=== PATIENT | female | born 1970 | race Caucasian/White ===

== ENCOUNTER 2018-11-30 04:59 | Inpatient (IN) ==
[2018-11-24 14:05] LABS: Basophils # 0.1 10*3/uL (0.0-0.2); Basophils % 0.7 % (0.0-0.8); Eosinophils # 0.5 10*3/uL (0.0-0.87); Eosinophils % 5.8 % (0.00-10.9); Hematocrit 36.7 VOL% (35.7-47.0); Hemoglobin 11.6 GM/DL (12.0-16.0); Immature Granulocytes % 0.4 %; Immature Granulocytes Absolute 0.03 #; Lymphocytes # 1.9 10*3/uL (1.4-4.0); Lymphocytes % 22.4 % (21.3-54.2); Mean Corpuscular HGB Conc 31.6 GM/DL (32-36); Mean Corpuscular Volume 87.6 FL (87-102); Mean Platelet Volume 11.4 FL (9.6-12.0); Monocytes % 7.2 % (1.7-12.7); Neutrophils % 63.5 % (38.7-73.9); Platelet Count 239 T/CUMM (130-400); Red Blood Count 4.19 MC/CUMM (3.8-5.5); Red Cell Distribution Width 13.8 % (9.3-17.3); White Blood Count 8.5 T/CUMM (4-12)
[2018-11-24 14:18] LABS: Calcium 8.8 MG/DL (8.5-10.1); Osmolality,Calculated 276.4 MOS/KG (273-304)
[2018-11-30] MEDS ORDERED: CLINDAMYCIN INJ 50 ML IV ONE (06:05)
[2018-11-30] MEDS ORDERED: FAMOTIDINE 20 MG TABLET PO ONE (06:20)
[2018-11-30] MEDS ORDERED: BUPIVACAINE MPF 0.25% 30 ML VIAL ONE ×3 (06:22→06:27)
[2018-11-30] MEDS ORDERED: DEXAMETHASONE 4 MG/1 ML VIAL ONE ×2 (06:22→11:01)
[2018-11-30] MEDS ORDERED: EPINEPHrine 1 MG/ML VIAL ONE (06:22)
[2018-11-30] MEDS ORDERED: LIDOCAINE 1%/EPI INJ 20 ML VIAL ONE (06:24)
[2018-11-30] MEDS ORDERED: TISSUE ADHESIVE 1 EACH APPLICATOR TOP ONE (06:24)
[2018-11-30] MEDS ORDERED: INDOCYANINE GREEN 25 MG VIAL IV ONE (06:24)
[2018-11-30] MEDS ORDERED: LACTATED RINGERS 1,000 ML IV SCH (06:30)
[2018-11-30] MEDS ORDERED: MICROFIBRILLAR COLLAGEN POWDER 1 GM CAN TOP ONE (09:13)
[2018-11-30] MEDS ORDERED: SEVOFLURANE 1 UNIT/15 MINUTE INH ONE (11:00)
[2018-11-30] MEDS ORDERED: LIDOCAINE 2% 5 ML VIAL ONE (11:00)
[2018-11-30] MEDS ORDERED: CLINDAMYCIN INJ 900 MG in PREMIX 1 EACH IV ONE (11:00)
[2018-11-30] MEDS ORDERED: propofoL 200 MG/20 ML VIAL IV ONE (11:00)
[2018-11-30] MEDS ORDERED: NEOSTIGMINE 10 MG/10 ML VIAL ONE (11:01)
[2018-11-30] MEDS ORDERED: ROCURONIUM 100 MG/10 ML VIAL IV ONE (11:01)
[2018-11-30] MEDS ORDERED: MIDAZOLAM 2 MG/2 ML VIAL ONE (11:01)
[2018-11-30] MEDS ORDERED: KETOROLAC 30 MG/1 ML VIAL ONE (11:01)
[2018-11-30] MEDS ORDERED: ONDANSETRON 4 MG/2 ML VIAL ONE (11:01)
[2018-11-30] MEDS ORDERED: GLYCOPYRROLATE 0.4 MG/2 ML VIAL ONE (11:01)
[2018-11-30] MEDS ORDERED: fentaNYL 100 MCG/2 ML VIAL ONE (11:01)
[2018-11-30] MEDS ORDERED: LACTATED RINGERS 3,000 ML IV ONE (11:01)
[2018-11-30] MEDS ORDERED: ALBUTEROL 2.5 MG/3 ML NEB RESP TX PRN (11:03)
[2018-11-30] MEDS ORDERED: ONDANSETRON 4 MG/2 ML VIAL IV PRN (11:09)
[2018-11-30] MEDS: HYDROmorphone 2 MG/1 ML VIAL IV PRN ×6 (11:12→23:49)
[2018-11-30 12:36] LABS: Basophils # 0.1 10*3/uL (0.0-0.2); Basophils % 0.3 % (0.0-0.8); Eosinophils # 0.1 10*3/uL (0.0-0.87); Eosinophils % 0.3 % (0.00-10.9); Hematocrit 29.3 VOL% (35.7-47.0); Hemoglobin 9.2 GM/DL (12.0-16.0); Immature Granulocytes % 0.7 %; Immature Granulocytes Absolute 0.12 #; Lymphocytes # 0.9 10*3/uL (1.4-4.0); Lymphocytes % 5.1 % (21.3-54.2); Mean Corpuscular HGB Conc 31.4 GM/DL (32-36); Mean Corpuscular Volume 86.9 FL (87-102); Monocytes % 3.5 % (1.7-12.7); Neutrophils % 90.1 % (38.7-73.9); Platelet Count 218 T/CUMM (130-400); Red Blood Count 3.37 MC/CUMM (3.8-5.5); Red Cell Distribution Width 13.8 % (9.3-17.3)
[2018-11-30] MEDS: DEXTROSE 5% LACTATED RINGERS 1,000 ML IV SCH ×2 (13:03→21:08)
[2018-11-30] MEDS: CLINDAMYCIN INJ 900 MG in PREMIX 1 EACH IV SCH (17:14)
[2018-11-30] MEDS: ONDANSETRON 4 MG/2 ML VIAL IV PRN ×2 (17:33→23:49)
[2018-11-30 19:15] LABS: Hematocrit 30.3 VOL% (35.7-47.0); Hemoglobin 9.4 GM/DL (12.0-16.0)
[2018-12-01] MEDS: CLINDAMYCIN INJ 900 MG in PREMIX 1 EACH IV SCH (01:24)
[2018-12-01] MEDS: DEXTROSE 5% LACTATED RINGERS 1,000 ML IV SCH ×3 (04:00→21:01)
[2018-12-01] MEDS: ONDANSETRON 4 MG/2 ML VIAL IV PRN ×2 (05:16→21:00)
[2018-12-01] MEDS: HYDROmorphone 2 MG/1 ML VIAL IV PRN ×2 (05:17→19:08)
[2018-12-01 05:59] LABS: Basophils % 0.1 % (0.0-0.8); Hematocrit 27.7 VOL% (35.7-47.0); Hemoglobin 8.5 GM/DL (12.0-16.0); Immature Granulocytes % 0.4 %; Immature Granulocytes Absolute 0.05 #; Lymphocytes % 8.2 % (21.3-54.2); Mean Corpuscular HGB Conc 30.7 GM/DL (32-36); Mean Corpuscular Volume 89.4 FL (87-102); Mean Platelet Volume 11.9 FL (9.6-12.0); Monocytes % 6.9 % (1.7-12.7); Neutrophils % 84.4 % (38.7-73.9); Platelet Count 209 T/CUMM (130-400); Red Cell Distribution Width 14.3 % (9.3-17.3); White Blood Count 12.6 T/CUMM (4-12)
[2018-12-01 06:26] LABS: Osmolality,Calculated 280.3 MOS/KG (273-304)
[2018-12-01] MEDS: PANTOPRAZOLE 40 MG TABLET PO SCH (09:03)
[2018-12-01] MEDS: GABAPENTIN 100 MG CAPSULE PO SCH (21:00)
[2018-12-02] MEDS ORDERED: diphenhydrAMINE 50 MG/1 ML VIAL IV ONE (00:33)
[2018-12-02 05:07] LABS: Basophils % 0.4 % (0.0-0.8); Eosinophils # 0.2 10*3/uL (0.0-0.87); Hematocrit 24.4 VOL% (35.7-47.0); Hemoglobin 7.3 GM/DL (12.0-16.0); Immature Granulocytes % 0.5 %; Immature Granulocytes Absolute 0.04 #; Lymphocytes % 22.9 % (21.3-54.2); Mean Corpuscular HGB Conc 29.9 GM/DL (32-36); Mean Platelet Volume 12.2 FL (9.6-12.0); Monocytes % 8.1 % (1.7-12.7); Neutrophils % 66.1 % (38.7-73.9); Platelet Count 182 T/CUMM (130-400); Red Blood Count 2.68 MC/CUMM (3.8-5.5); Red Cell Distribution Width 14.6 % (9.3-17.3); White Blood Count 8.5 T/CUMM (4-12)
[2018-12-02 05:23] LABS: Osmolality,Calculated 285.7 MOS/KG (273-304)
[2018-12-02] MEDS: DEXTROSE 5% LACTATED RINGERS 1,000 ML IV SCH ×2 (05:45→11:22)
[2018-12-02] MEDS: PANTOPRAZOLE 40 MG TABLET PO SCH (08:53)
[2018-12-02] MEDS: HYDROmorphone 2 MG/1 ML VIAL IV PRN (08:53)
[2018-12-02] MEDS: GABAPENTIN 100 MG CAPSULE PO SCH ×2 (08:53→20:36)
[2018-12-02] MEDS ORDERED: DEXTROSE 5% LACTATED RINGERS 1,000 ML IV SCH (10:00)
[2018-12-02] MEDS: ONDANSETRON 4 MG/2 ML VIAL IV PRN (23:06)
[2018-12-03] MEDS: ONDANSETRON 4 MG/2 ML VIAL IV PRN ×3 (03:58→22:20)
[2018-12-03 06:59] LABS: Calcium 7.9 MG/DL (8.5-10.1); Osmolality,Calculated 273.5 MOS/KG (273-304)
[2018-12-03 07:04] LABS: Basophils % 0.4 % (0.0-0.8); Eosinophils # 0.4 10*3/uL (0.0-0.87); Eosinophils % 4.9 % (0.00-10.9); Hematocrit 24.1 VOL% (35.7-47.0); Hemoglobin 7.3 GM/DL (12.0-16.0); Immature Granulocytes % 0.3 %; Immature Granulocytes Absolute 0.02 #; Lymphocytes # 1.4 10*3/uL (1.4-4.0); Lymphocytes % 17.7 % (21.3-54.2); Mean Corpuscular HGB Conc 30.3 GM/DL (32-36); Mean Corpuscular Volume 90.9 FL (87-102); Mean Platelet Volume 10.9 FL (9.6-12.0); Monocytes % 9.7 % (1.7-12.7); Platelet Count 191 T/CUMM (130-400); Red Blood Count 2.65 MC/CUMM (3.8-5.5); Red Cell Distribution Width 14.5 % (9.3-17.3); White Blood Count 7.7 T/CUMM (4-12)
[2018-12-03] MEDS: DEXTROSE 5% LACTATED RINGERS 1,000 ML IV SCH ×2 (08:20→21:49)
[2018-12-03] MEDS: PANTOPRAZOLE 40 MG TABLET PO SCH (08:20)
[2018-12-03] MEDS: GABAPENTIN 100 MG CAPSULE PO SCH ×2 (08:20→20:58)
[2018-12-04] MEDS: ONDANSETRON 4 MG/2 ML VIAL IV PRN ×3 (04:02→18:34)
[2018-12-04] MEDS: PANTOPRAZOLE 40 MG TABLET PO SCH (08:43)
[2018-12-04] MEDS: GABAPENTIN 100 MG CAPSULE PO SCH ×2 (08:43→20:38)
[2018-12-04] MEDS: DEXTROSE 5% LACTATED RINGERS 1,000 ML IV SCH (11:12)
[2018-12-05] MEDS: DEXTROSE 5% LACTATED RINGERS 1,000 ML IV SCH ×2 (01:15→18:43)
[2018-12-05 07:08] LABS: Basophils % 0.3 % (0.0-0.8); Eosinophils # 0.5 10*3/uL (0.0-0.87); Hematocrit 24.8 VOL% (35.7-47.0); Hemoglobin 7.8 GM/DL (12.0-16.0); Immature Granulocytes % 0.3 %; Immature Granulocytes Absolute 0.02 #; Lymphocytes # 1.1 10*3/uL (1.4-4.0); Lymphocytes % 16.7 % (21.3-54.2); Mean Corpuscular HGB Conc 31.5 GM/DL (32-36); Mean Corpuscular Volume 88.9 FL (87-102); Mean Platelet Volume 11.1 FL (9.6-12.0); Monocytes % 8.7 % (1.7-12.7); Platelet Count 233 T/CUMM (130-400); Red Blood Count 2.79 MC/CUMM (3.8-5.5); Red Cell Distribution Width 14.3 % (9.3-17.3); White Blood Count 6.5 T/CUMM (4-12)
[2018-12-05 07:34] LABS: Calcium 8.3 MG/DL (8.5-10.1); Osmolality,Calculated 280.1 MOS/KG (273-304)
[2018-12-05] MEDS: PANTOPRAZOLE 40 MG TABLET PO SCH (08:28)
[2018-12-05] MEDS: GABAPENTIN 100 MG CAPSULE PO SCH ×2 (08:28→20:11)
[2018-12-05] MEDS: PROMETHAZINE 25 MG/1 ML VIAL IM PRN (22:09)
[2018-12-06] MEDS: PROMETHAZINE 25 MG/1 ML VIAL IM PRN ×2 (04:28→22:40)
[2018-12-06] MEDS: DEXTROSE 5% LACTATED RINGERS 1,000 ML IV SCH ×2 (04:41→17:42)
[2018-12-06] MEDS: GABAPENTIN 100 MG CAPSULE PO SCH ×2 (09:05→20:56)
[2018-12-06] MEDS: PANTOPRAZOLE 40 MG TABLET PO SCH (09:06)
[2018-12-07] MEDS: ONDANSETRON 4 MG/2 ML VIAL IV PRN ×3 (01:02→23:50)
[2018-12-07] MEDS ORDERED: ALUMINUM/MAGNES/SIMETH MAX STR 30 ML UDCUP PO PRN (04:12)
[2018-12-07 08:16] LABS: Basophils % 0.2 % (0.0-0.8); Eosinophils # 0.4 10*3/uL (0.0-0.87); Eosinophils % 2.9 % (0.00-10.9); Hematocrit 27.5 VOL% (35.7-47.0); Hemoglobin 8.5 GM/DL (12.0-16.0); Immature Granulocytes % 0.5 %; Immature Granulocytes Absolute 0.06 #; Lymphocytes # 1.2 10*3/uL (1.4-4.0); Lymphocytes % 9.7 % (21.3-54.2); Mean Corpuscular HGB Conc 30.9 GM/DL (32-36); Mean Corpuscular Volume 87.9 FL (87-102); Mean Platelet Volume 10.9 FL (9.6-12.0); Monocytes % 9.1 % (1.7-12.7); Neutrophils % 77.6 % (38.7-73.9); Platelet Count 305 T/CUMM (130-400); Red Blood Count 3.13 MC/CUMM (3.8-5.5); Red Cell Distribution Width 14.5 % (9.3-17.3); White Blood Count 12.2 T/CUMM (4-12)
[2018-12-07 08:31] LABS: Calcium 8.7 MG/DL (8.5-10.1); Osmolality,Calculated 276.5 MOS/KG (273-304)
[2018-12-07] MEDS: PANTOPRAZOLE 40 MG TABLET PO SCH (10:20)
[2018-12-07] MEDS: GABAPENTIN 100 MG CAPSULE PO SCH ×2 (10:20→20:32)
[2018-12-07] MEDS: DEXTROSE 5% LACTATED RINGERS 1,000 ML IV SCH (11:21)
[2018-12-07 13:40] LABS: Apearance,Urine Slightly Hazy (Clear); Bacteria,Urine Occasional /HPF (Few); Bilirubin,Urine Negative (Negative); Blood, Urine Negative (Negative); Glucose,Urine (UA) Negative (Negative); Ketones,Urine Negative (Negative); Mucus,Urine Occasional /LPF (Occasional); Nitrite,Urine Negative (Negative); Protein,Urine Negative; RBC,Urine 2 /HPF (0-4); Squamous Epithelial Cell,Urine Occasional /HPF (0-10); Urine Color Yellow (Yellow); Urine Specific Gravity 1.019 (1.001-1.035); Urine Urobilinogen < 2.0 EU/DL (0.2-1.0); WBC,Urine <1 /HPF (0-6)
[2018-12-08] MEDS: ONDANSETRON 4 MG/2 ML VIAL IV PRN ×2 (04:25→12:41)
[2018-12-08 05:16] LABS: Basophils % 0.3 % (0.0-0.8); Eosinophils # 0.9 10*3/uL (0.0-0.87); Eosinophils % 6.2 % (0.00-10.9); Hematocrit 28.7 VOL% (35.7-47.0); Hemoglobin 8.8 GM/DL (12.0-16.0); Immature Granulocytes % 0.4 %; Immature Granulocytes Absolute 0.06 #; Lymphocytes # 2.1 10*3/uL (1.4-4.0); Lymphocytes % 14.4 % (21.3-54.2); Mean Corpuscular HGB Conc 30.7 GM/DL (32-36); Mean Corpuscular Volume 88.3 FL (87-102); Mean Platelet Volume 10.9 FL (9.6-12.0); Monocytes % 7.5 % (1.7-12.7); Neutrophils % 71.2 % (38.7-73.9); Platelet Count 346 T/CUMM (130-400); Red Blood Count 3.25 MC/CUMM (3.8-5.5); Red Cell Distribution Width 14.4 % (9.3-17.3); White Blood Count 14.5 T/CUMM (4-12)
[2018-12-08] MEDS: DEXTROSE 5% LACTATED RINGERS 1,000 ML IV SCH ×3 (06:09→22:47)
[2018-12-08] MEDS: GABAPENTIN 100 MG CAPSULE PO SCH ×2 (10:23→22:49)
[2018-12-08] MEDS: PANTOPRAZOLE 40 MG TABLET PO SCH (10:24)
[2018-12-08 11:32] LABS: Albumin 2.7 G/DL (3.4-5.0); Bilirubin,Total 0.6 MG/DL (0.2-1.0); Calcium 8.3 MG/DL (8.5-10.1); Osmolality,Calculated 277.4 MOS/KG (273-304); Total Protein 6.4 G/DL (6.4-8.3)
[2018-12-09 07:16] LABS: Basophils % 0.4 % (0.0-0.8); Eosinophils # 0.8 10*3/uL (0.0-0.87); Eosinophils % 9.4 % (0.00-10.9); Hematocrit 25.2 VOL% (35.7-47.0); Hemoglobin 7.6 GM/DL (12.0-16.0); Immature Granulocytes % 0.6 %; Immature Granulocytes Absolute 0.05 #; Lymphocytes # 1.4 10*3/uL (1.4-4.0); Lymphocytes % 17.8 % (21.3-54.2); Mean Corpuscular HGB Conc 30.2 GM/DL (32-36); Mean Corpuscular Volume 89.4 FL (87-102); Mean Platelet Volume 10.7 FL (9.6-12.0); Monocytes % 7.7 % (1.7-12.7); Neutrophils % 64.1 % (38.7-73.9); Platelet Count 295 T/CUMM (130-400); Red Blood Count 2.82 MC/CUMM (3.8-5.5); Red Cell Distribution Width 14.5 % (9.3-17.3); White Blood Count 8.1 T/CUMM (4-12)
[2018-12-09 07:56] LABS: Calcium 8.5 MG/DL (8.5-10.1); Osmolality,Calculated 281.1 MOS/KG (273-304)
[2018-12-09] MEDS: PANTOPRAZOLE 40 MG TABLET PO SCH (09:19)
[2018-12-09] MEDS: DEXTROSE 5% LACTATED RINGERS 1,000 ML IV SCH ×2 (13:20)
[2018-12-10] MEDS: DEXTROSE 5% LACTATED RINGERS 1,000 ML IV SCH (04:21)
[2018-12-10 05:56] LABS: Basophils % 0.5 % (0.0-0.8); Eosinophils # 0.7 10*3/uL (0.0-0.87); Eosinophils % 9.7 % (0.00-10.9); Hematocrit 26.6 VOL% (35.7-47.0); Hemoglobin 7.7 GM/DL (12.0-16.0); Immature Granulocytes % 0.4 %; Immature Granulocytes Absolute 0.03 #; Lymphocytes # 1.7 10*3/uL (1.4-4.0); Lymphocytes % 22.4 % (21.3-54.2); Mean Corpuscular HGB Conc 28.9 GM/DL (32-36); Mean Corpuscular Volume 91.7 FL (87-102); Mean Platelet Volume 11.3 FL (9.6-12.0); Monocytes % 7.3 % (1.7-12.7); Neutrophils % 59.7 % (38.7-73.9); Platelet Count 280 T/CUMM (130-400); Red Cell Distribution Width 14.2 % (9.3-17.3); White Blood Count 7.7 T/CUMM (4-12)
[2018-12-10 06:21] LABS: Calcium 8.5 MG/DL (8.5-10.1)
[2018-12-10 06:59] LABS: Eosinophils 8 % (0-10); Hypochromasia 1+; Lymphocytes 25 % (20-55); Platelet Estimate Normal; Segmented Neutrophils 63 % (50-85); Total Cells Counted 100
[2018-12-10 07:00] LABS: Anisocytosis Slight; Microcytosis 1+
[2018-12-10 08:25] VITALS: BP 146/81
[2018-12-10] MEDS: PANTOPRAZOLE 40 MG TABLET PO SCH (08:33)
== END 2018-12-10 13:06 | disposition home or self-care (01) ==
LOC: N.PREADM 04:59 → N.SDSINP 05:31 → N.3E 12:22
PROVIDERS: ADMIT Surgery; ATTEND Surgery